=== PATIENT | female | born 1985 | race Caucasian/White ===

== ENCOUNTER → 2024-07-26 06:17 | Day surgery (SDC) | payer OTHER, SELFPAY | LOC: GI 06:17 | PROVIDERS: ATTENDING PHYSICIAN Internal Medicine | DX: K63.5 Polyp of colon (principal); K57.30 Diverticulosis of large intestine without perforation or abscess without bleeding; K22.2 Esophageal obstruction; K22.89 Other specified disease of esophagus; K21.00 Gastro-esophageal reflux disease with esophagitis, without bleeding; K44.9 Diaphragmatic hernia without obstruction or gangrene; K31.89 Other diseases of stomach and duodenum; R19.7 Diarrhea, unspecified; R13.10 Dysphagia, unspecified | CPT/HCPCS: 45380; 43239; 88305; 88312; 88342 ==

== ENCOUNTER 2024-10-15 09:18 | Inpatient (IN) | payer OTHER, SELFPAY ==
[2024-10-13 21:31] VITALS: BP 144/94
[2024-10-13] MEDS: ZOFRAN ODT (ORALLY DISINTEGRATING) 4 MG PO (21:44)
[2024-10-13 21:46] LABS: % Basophils 0.2 % (0-2); % Eosinophils 0.9 % (0-6); % Immature Granulocytes 0.4 % (0-0.5); % Monocytes 4.2 % (1.7-9.3); % Neutrophils 88.3 % (42.2-75.2); Absolute Eosinophils 0.1 10^3/uL (0-0.7); Absolute Immature Granulocytes 0.1 10^3/uL (0-0.05); Absolute Lymphocytes 0.8 10^3/uL (1.2-3.4); Absolute Monocytes 0.6 10^3/uL (0.1-0.6); Absolute Neutrophils 11.6 10^3/uL (1.4-6.5); Hematocrit 42.3 % (37.0-47.0); Hemoglobin 14.5 g/dL (12.0-16.0); Mean Corp Hgb Conc. 34.3 g/dL (33.0-37.0); Mean Corpuscular Hgb 31.1 pg (27.0-31.0); Mean Corpuscular Volume 90.8 fL (81.0-99.0); Mean Platelet Volume 9.4 fL (7.4-10.4); Nucleated Red Blood Cells % 0 %; Platelet Count 272 10^3/uL (130-400); Red Blood Cell Count 4.66 10^6/uL (4.20-5.40); Red Cell Dist. Width 12.1 % (11.5-14.5); White Blood Cell Count 13.2 10^3/uL (4.8-10.8)
[2024-10-13 21:58] LABS: HCG, Serum Qualitative Screen Negative
[2024-10-13 22:01] LABS: ALT (SGPT) 17 U/L (0-35); AST (SGOT) 22 U/L (14-36); Albumin 4.8 g/dl (3.5-5.0); Alkaline Phosphatase 66 U/L (38-126); Blood Urea Nitrogen 11 mg/dl (7-17); Calcium 9.2 mg/dl (8.4-10.2); Carbon Dioxide 24 mmol/L (22-30); Chloride 102 mmol/L (98-107); Glucose 107 mg/dl (70-99); Lipase 108 U/L (23-300); Potassium 3.8 mmol/L (3.5-5.1); Sodium 136 mmol/L (135-145); Total Bilirubin 0.9 mg/dl (0.2-1.3); Total Protein 7.7 g/dl (6.3-8.2); eGFR > 60.00
--- NOTE | 2024-10-13 22:26 | ED.GENMED ---
History of Present Illness
General
Chief Complaint: Abdominal Pain
Time Seen by Provider: 10/13/24 22:26
History of Present Illness
History of Present Illness:
TIME OF INITIAL ENCOUNTER: 10:45 PM
HPI: The patient presents due to right-sided abdominal pain that started earlier this morning. She has had a cholecystectomy in the past. The pain is somewhat similar but is lower than where she had the cholecystectomy. She has had some nausea
and vomiting without diarrhea.
EXAM:
GENERAL: Well appearingand is crying in due to pain and appears to be in mild to moderate distress related to pain in the right-side of abdomen
HEENT: Moist oral mucosa
CARDIOVASCULAR: No murmurs, normal heart rate, regular rhythm, No chest wall tenderness
PULMONARY: No respiratory distress, breath sounds are clear and equal
ABDOMEN: Soft with no peritoneal signs, mild right-sided abdominal tenderness
NEUROLOGIC: Excellent strength all extremities, no coordination deficits
PSYCHIATRIC: Appropriate mental status, normal insight and judgement, appears somewhat anxious
EXTREMITIES: Nontender, no edema, moves all extremities equally
SKIN: No rash, no lesions
NUMBER AND COMPLEXITY OF PROBLEMS ADDRESSED AT THE ENCOUNTER
� Chronic conditions affecting care: Hypothyroidism, anxiety, anemia, has had cholecystectomy
� Acute Exacerbation and/or Progression of Chronic Illness: This is an acute problem
� Differential Diagnosis includes: Pancreatitis, appendicitis, mesenteric adenitis, gastroenteritis, colitis
AMOUNT AND/OR COMPLEXITY OF DATA TO BE REVIEWED AND ANALYZED
� I performed an independent evaluation of and my interpretation is:
EKG:
CT: I personally reviewed CT of the abdomen pelvis and agree with radiologist interpretation that there is fluid distention of the small and large bowel loops with no definite wall thickening
X-rays:
Laboratory Studies: White count 13.2, hemoglobin 14.5, chemistries unremarkable including lipase, LFTs, and hCG
Other:
� Review of other/old records: I reviewed records. The patient had a colonoscopy in September 2024.
� Clinical information was obtained by an independent historian: I spoke to boyfriend at bedside
� Prescriptions/Medications Considered but not given:
� Further testing considered but not performed:
RISK OF COMPLICATIONS AND/OR MORBIDITY OR MORTALITY OF PATIENT MANAGEMENT
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
� Discussion with other providers: Dr. Pope, hospitalist for admission at about 1:07 AM
� Escalation of care including admission/observation vs risk of discharge considered: Given severity of symptoms, will obtain CT imaging. Narcotic analgesia was also given.
ANY OTHER UPDATES:
1 AM: The patient reports no improvement, the patient also just had a bout of seizure-like activity that lasted for about 10 seconds. I favor more of a psychogenic seizure as she had no tongue bite traore, no urinary incontinence, and no postictal
phase. She still has ongoing pain and appears very uncomfortable. She was given Zofran and a couple rounds of narcotic analgesia without much improvement.
Past History
Past History
ED Past Medical History: Other (gallstones)
ED Past Surgical History: Cholecystectomy, , Gynecological (Uterine ablation/reversal of tubal ligation) and Other (Abdominoplasty)
Social History
Tobacco: Non-smoker
Personal:
Living: with family
Employment: Not employed
Family History
Family History: Other (Noncontributory)
Phy Exam
Physical Exam
Physical Exam:
See HPI
Course
Orders/Labs/Results
Orders:
Orders
10/13/24 21:31
Test Result ONCE
10/13/24 21:38
Complete Blood Count/With Diff Urgent
Comprehensive Metabolic Panel Urgent
HCG, Serum Qualitative Screen Urgent
Lipase Urgent
10/13/24 21:42
Ondansetron Orally Disint [Zofran Odt (Orally Disintegrating)] 4 mg .ROUTE .[facility]
10/13/24 21:44
Ondansetron Orally Disint [Zofran Odt (Orally Disintegrating)] 4 mg PO NOW STA
10/13/24 22:47
0.9% Sodium Chloride 1000 ml [Nss] 1,000 ml IV BOLUS
Famotidine [Pepcid] 20 mg IV NOW STA
HYDROmorphone [Dilaudid] 1 mg IV NOW STA
Ondansetron Injectable [Zofran] 4 mg IV NOW STA
10/13/24 22:49
CT Abd/pelvis W Iv Cont Urgent
Comment:
Reason For Exam: R pain
10/14/24 01:04
0.9% Sodium Chloride 1000 ml [Nss] 1,000 ml IV BOLUS
HYDROmorphone [Dilaudid] 0.5 mg IV NOW STA
Ondansetron Injectable [Zofran] 4 mg IV NOW STA
10/14/24 02:03
Admit/Transfer Patient As Directed
Co-Sign Provider:
Level of Care: Observation services
Assign to:: Telemetry
Physician / Group: hospitalist
Diagnosis: abdominal pain
Reason for Telemetry: Other
Other Reason for Telemetry: possible seizure
Date to Stop Telemetry: 10/16/24
Time to Stop Telemetry: 11:00
PRN Pain Medication Management As Directed
May give lesser potent ordered pain med per pt: Yes
preference::
Protocol:: Medication orders for pain may be administered in a
manner that supports deferring to patient preference
when the pt is:
- Requesting an ordered lesser potent pain medication.
Least to most potent pain medications are defined
as: acetaminophen < NSAID < tramadol < opioids
(morphine, oxycodone, hydromorphone).
- Requesting a lesser dose of the same medication IF
ORDERED.
- Requesting a less intrusive route of administration
if both routes are prescribed by the provider (PO <
IV).
10/14/24 02:04
Code Status As Directed
Resuscitation Status: Full Code
10/14/24 02:07
CT Head W/o Iv Contrast Urgent
Comment:
Reason For Exam: headache w/ possible sz, rule out bleed/mass
10/14/24 02:28
0.9% Sodium Chloride 1000 ml [Nss] 1,000 ml IV 75 mls/hr
Acetaminophen [Tylenol] 650 mg PO Q4HPRN PRN
HYDROmorphone [Dilaudid] 1 mg IV Q4HPRN PRN
Ondansetron Injectable [Zofran] 4 mg IV Q6HPRN PRN
10/14/24 02:28
Activity As Directed
Activity Level: With Assistance
Vital Signs As Directed
Frequency: Per unit guidelines
DX Deep Vein Thrombosis Video Routine
10/14/24 03:00
Flush (0.9% Sodium Chloride) [Flush (Nss)] See Dose Instructions IV PER PROTOCOL
10/14/24 05:36
Basic Metabolic Panel IN AM
Complete Blood Count/No Diff IN AM
10/14/24 05:49
HYDROmorphone [Dilaudid] 0.5 mg IV Q4HPRN PRN
10/14/24 Breakfast
NPO
Allow oral meds: Yes
Allow clear liquids: Sips of Clears
NPO with Ice Chips: Yes
10/14/24 08:00
0.9% Sodium Chloride [Nss (Preservative Free)] 10 ml IV DAILY
Alprazolam [Xanax] 1 mg PO DAILY@0800,1400
Multivitamin [Theragran] 1 tablet PO DAILY
Pantoprazole [Protonix IV] 40 mg IV DAILY
10/14/24 Lunch
Clear Liquid
At Your Request: Full Participation
Does patient need a safe tray?: No
10/14/24 12:09
GASTROINTESTINAL CONSULT Routine
Consulting Provider: Clarisse Olivera
Was physician already notified: Yes
10/14/24 14:37
Fentanyl, Urine Stat
Urine Drug Abuse Screen Stat
Date Specimen was Collected: 10/14/24
Time Specimen was Collected: 14:21
STOOL [C difficile Antigen & Toxins] Routine
ALAN Source: Feces/Stool
Specimen Description:
Date Specimen was Collected: 10/14/24
Time Specimen was Collected: 14:21
Stool Culture Routine
ALAN Source: Feces/Stool
Specimen Description:
Date Specimen was Collected: 10/14/24
Time Specimen was Collected: 14:21
10/14/24 16:54
Morphine Sulfate 2 mg IV NOW STA
10/14/24 18:00
Enoxaparin Sodium [Lovenox] 40 mg SC QPM
10/14/24 22:00
Alprazolam [Xanax] 2 mg PO HS
HydrOXYZINE [Atarax] 25 mg PO HS
10/15/24 01:21
Sucralfate Suspension [Carafate Suspension] 1 gm PO NOW STA
10/15/24 04:17
CBC/With Diff [Complete Blood Count/With Diff] IN AM
10/15/24 05:26
Comprehensive Metabolic Panel Routine
Comment: REDRAW
10/15/24 Breakfast
Full Liquids
At Your Request: Full Participation
10/15/24 08:46
Level of Care Change As Directed
Level of Care: Inpatient admission
Reason for Hospitalization: Persistent abdominal pain and distention
diarrhea
Expected length of stay greater than two midnights?: Yes
ELOS- Estimated Length of Stay in days: 4
I certify the patient meets the requirements for IP care: Yes
10/15/24 09:33
Norovirus by PCR Routine
ALAN Source: Feces/Stool
Specimen Description:
Date Specimen was Collected: 10/15/24
Time Specimen was Collected: 09:31
Stool For WBC Routine
ALNA Source: Feces/Stool
Specimen Description:
Date Specimen was Collected: 10/15/24
Time Specimen was Collected: 09:31
10/16/24 06:00
Obstruct Series W/PA Chest [CR Obstruct Series W/pa Chest] IN AM
Comment:
Reason For Exam: abdominal distention
10/16/24 07:37
BMP [Basic Metabolic Panel] IN AM
CBC/With Diff [Complete Blood Count/With Diff] IN AM
Lactic Acid IN AM
10/16/24 11:00
DC Protocol for Telemetry ONCE
Abnormal Lab Results
10/13/24 10/14/24 10/14/24
21:38 05:36 14:37
WBC 13.2 H 10^3/uL
(4.8-10.8)
RBC 3.77 L 10^6/uL
(4.20-5.40)
Hgb 11.8 L g/dL
(12.0-16.0)
Hct 34.9 L %
(37.0-47.0)
MCH 31.1 H pg 31.3 H pg
(27.0-31.0) (27.0-31.0)
Abs Immat Gran (auto) 0.1 H 10^3/uL
(0-0.05)
Absolute Neuts (auto) 11.6 H 10^3/uL
(1.4-6.5)
Absolute Lymphs (auto) 0.8 L 10^3/uL
(1.2-3.4)
Neutrophils % 88.3 H %
(42.2-75.2)
Lymphocytes % 6.0 L %
(20.5-51.1)
Monocytes %
Chloride 108 H mmol/L
(98-107)
Carbon Dioxide 21 L mmol/L
(22-30)
BUN
Glucose 107 H mg/dl 104 H mg/dl
(70-99) (70-99)
Calcium 7.2 L D mg/dl
(8.4-10.2)
Total Protein
Albumin
Urine Opiates Screen Positive H
(Negative)
U Benzodiazepines Scrn Positive H
(Negative)
10/15/24 10/15/24
04:17 05:26
WBC 3.6 L 10^3/uL
(4.8-10.8)
RBC 3.62 L 10^6/uL
(4.20-5.40)
Hgb 11.5 L g/dL
(12.0-16.0)
Hct 33.2 L %
(37.0-47.0)
MCH 31.8 H pg
(27.0-31.0)
Abs Immat Gran (auto)
Absolute Neuts (auto)
Absolute Lymphs (auto) 0.8 L 10^3/uL
(1.2-3.4)
Neutrophils %
Lymphocytes %
Monocytes % 12.1 H %
(1.7-9.3)
Chloride 108 H mmol/L
(98-107)
Carbon Dioxide
BUN 3 L mg/dl
(7-17)
Glucose
Calcium 7.5 L mg/dl
(8.4-10.2)
Total Protein 5.3 L D g/dl
(6.3-8.2)
Albumin 3.0 L D g/dl
(3.5-5.0)
Urine Opiates Screen
U Benzodiazepines Scrn
10/15/24 04:17
10/15/24 05:26
Vital Signs
Initial and Last Documented VS:
Initial Vital Signs
Temp Pulse Resp BP Pulse Ox
36.6 C 128 18 144/94 100
10/13/24 21:31 10/13/24 21:31 10/13/24 21:31 10/13/24 21:31 10/13/24 21:31
Last Documented Vital Signs
Temp Pulse Resp BP Pulse Ox
36.7 C 74 16 111/73 100
10/16/24 11:57 10/16/24 11:57 10/16/24 11:57 10/16/24 11:57 10/16/24 11:57
*Critical Care Note
Total Time (30-74mins, 75-104mins- exclusive of procedures): Not Applicable
ED Attending Note
-
Portions of this chart may have been created with voice recognition software.� Occasional wrong word or��sound alike� substitutions may have occurred due to the inherent limitations of voice recognition software.
Discharge Plan
Departure
Patient Disposition: Admit
Date of Disposition: 10/14/24
Time of Disposition: :
Presentation/result/management discussed w/ accepting MD/DO: Hospitalist
Discharge Problem:
Intractable abdominal pain
Interventions
Interventions:
*Risk Screen - Suicide Last Done: 10/13/24 21:33
*General Assessment Last Done: 10/13/24 21:33
*Neglect/Abuse Screening Last Done: 10/13/24 21:33
ED- Fall Risk Assessment Last Done: 10/15/24 20:26
*ED COVID-19 Vaccine History Last Done: 10/13/24 22:39
*Nursing Disposition Last Done: 10/15/24 20:26
WD-[facility]sd[facility] Assessment Last Done: 10/14/24 11:02
Discharge Date and Time
Discharge Date/Time: 10/15/24 20:27
[2024-10-13 22:39] VITALS: BMI 23.3
--- NOTE | 2024-10-13 22:41 | EDRN ---
Pt started tin RUQ abdominal pain intermittently all day. Pt has not eaten due to the pain. Pt tried to drink tea and pain became stabbing and pt vomited around 2100. Pt feels weak and dizzy. No cp, sob, fever/chills/cough, urinary symptoms. Pt
had similar pain when her gallbladder was removed.
[2024-10-13 22:46] VITALS: BP 126/99
[2024-10-13] MEDS: NSS 1000 IV (22:54)
[2024-10-13] MEDS: ZOFRAN 4 MG IV (22:57)
[2024-10-13] MEDS: PEPCID 20 MG IV (22:59)
[2024-10-13 23:00] VITALS: BP 117/96
[2024-10-13] MEDS: DILAUDID 1 MG IV (23:02)
[2024-10-14] VITALS (9 sets, daily range): BP systolic 90–112; BP diastolic 66–87; BMI 25.3
[2024-10-14] MEDS: NSS 1000 IV ×4 (01:26→21:03)
[2024-10-14] MEDS: ZOFRAN 4 MG IV ×3 (01:26→14:32)
[2024-10-14] MEDS: DILAUDID 0.5 MG IV ×4 (01:30→16:20)
--- NOTE | 2024-10-14 01:51 | HPS.HSE ---
Family Physician
-
Family Physician: Omaira Greenwood
Chief Complaint
-
Intractable abdominal pain and nausea vomiting
History of Present Illness
This is a 39-year-old female with past medical history of cholecystitis status post cholecystectomy, history of hernia repair and ectopic status post surgery who presents to the emergency department with an acute episode of right upper
quadrant abdominal pain with nausea and vomiting that started this a.m.
Patient and family report that she had a headache yesterday but otherwise was in usual state of health. Denies any known sick contacts. 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 She denies having any fevers or chills.
She has not had any diarrhea. She has diverticulosis and reported that she had a soft bowel movement this morning. Soon afterwards she felt nauseous and had large voluminous and bilious emesis. She reported that she had up to 6 emesis at home.
Since then she has been having continuous dry heaving. Pain is reported as sharp located to the right upper quadrant and nonradiating. She has no urinary symptoms. She denies any shortness of breath.
She stated that she recently had upper endoscopy via GI and she was told that she had sliding hiatal hernia at that time.
While in the emergency department room she was requesting additional pain medications and spouse reportedly had convulsive episode that lasted for about 5 seconds. Denies any prior history of seizures. Denies any regular alcohol use.
She was hemodynamically stable and afebrile with normal oxygen saturation on room air.
CBC was unremarkable except for a white count of 13. Electrolytes were also within normal limits. Lipase LFTs were normal. test was negative.
The CT of the abdomen pelvis was unremarkable except for fluid distention of the small and large bowel.
Medical History
Past Medical History
Past Medical History: Reports GERD and Psychiatric (Anxiety)
Past Surgical History: Reports Cholecystectomy
Additional Past Surgical History:
Ectopic status post surgery
Umbilical hernia repair
Social History
Tobacco: Non-smoker
Alcohol: Occasional
Drug: None
Personal:
Living: With Family
Employment: Employed
Family History
Family History: Not pertinent
Allergies / Home Medications
Allergies reflects when Allergies were last updated in [employer].
Home Medications with original date entered in [employer]
Allergy/Medication List:
Allergies
Allergy/AdvReac Type Severity Reaction Status Date / Time
ibuprofen [From Motrin] Allergy Facial Verified 10/13/24 22:41
swelling
meperidine Allergy 'LOOPY,NOT Verified 10/13/24 22:41
FEEL GOOD'
meperidine HCl [From Demerol] Allergy Unknown Verified 10/13/24 22:41
naproxen Allergy Swelling Verified 10/13/24 22:41
Sulfa (Sulfonamide Allergy Hives Verified 10/13/24 22:41
Antibiotics)
Home Medications
alprazolam 1 mg tablet 1 mg PO DAILY@0800,1400 10/13/24
alprazolam 1 mg tablet 2 mg PO HS 10/13/24
hydroxyzine HCl 25 mg tablet 25 mg PO HS 10/13/24
multivitamin 1 tab PO DAILY 10/13/24
pantoprazole 20 mg tablet,delayed release (Protonix) 20 mg PO DAILY 10/13/24
Review of Systems
-
History Source: Patient
Constitutional: Reports No Symptoms
EENT: Reports No Symptoms
Respiratory: Reports No Symptoms
Cardiac: Reports No Symptoms
Abdomen/GI: Reports Abdominal Pain, Nausea and Vomiting
: Reports No Symptoms
Musculoskeletal: Reports No Symptoms
Skin: Reports No Symptoms
Neurological: Reports No Symptoms
Endocrine: Reports No Symptoms
Hematologic/Lymphatic: Reports No Symptoms
Psych: Reports No Symptoms
Physical Exam
Vital Signs
Vital Signs
Temp Pulse Resp BP Pulse Ox
98 F 112 16 111/87 100
10/13/24 21:31 10/14/24 01:24 10/14/24 00:33 10/14/24 01:24 10/14/24 01:24
Physical Exam
General: Well Developed, Well Nourished and Pain
HEENT: NormoCephalic, Anicteric and Moist mucous membranes
Respiratory: Clear
Cardiac: S1/S2 and Regular Rhythm
Breast: Deferred by me
GI: Soft, Non Distended, Normal Bowel Sounds and Tender
Rectal: Deferred by Provider
Genito-urinary: Deferred by me
Musculoskeletal: No Clubbing, No Cyanosis and No Edema
Skin: Warm
Neuro: AO x 3
Hematologic/Lymphatic: No Lymphadenopathy
Psych: Anxious
Laboratory Results
-
10/13/24 21:38
10/13/24 21:38
Laboratory Results
Total Bilirubin 0.9 mg/dl (0.2-1.3) 10/13/24 21:38
AST 22 U/L (14-36) 10/13/24 21:38
ALT 17 U/L (0-35) 10/13/24 21:38
Alkaline Phosphatase 66 U/L (38-126) 10/13/24 21:38
Lipase 108 U/L (23-300) 10/13/24 21:38
Data Reviewed
-
CT Scan: Report Reviewed by me
Lab Data: Labs Reviewed by me
Old Records: Reviewed
Impression/Plan
-
IMPRESSION:
Patient with history of cholecystitis status post cholecystectomy, ectopic status post surgery, status post umbilical hernia repair who presents to the emergency department with acute episode of right upper quadrant discomfort/pain
associated with bilious emesis. She had leukocytosis. No urinary symptoms. Labs are otherwise unremarkable with negative LFTs and lipase. CT scan is unremarkable with unchanged biliary ductal size of 8 mm, no evidence of acute pancreatitis
appendicitis or obstruction. There is fluid distention of the small and large bowel which may be consistent with an ileus. Possibly briefly she had a gallstone ileus or at this time enteritis without apparent diarrhea. Course complicated by
episode of convulsions in the setting of seeking additional pain medications. This lasted about 5 to 10 seconds. She had an headache episode yesterday but has not had a headache since.
PLAN:
1. Abdominal pain - suspect ileus which could be from gall stones versus infectious gastroenteritis
- admit to telemetry/obs
- npo for now except sips and ice chips as well meds
- ppi daily
- antiemetics and pain control
- serial exam for abdominal distension and concern for obstruction
- IV fluids
2. Convulsions - No prior h/o. lasted 5 seconds. No post-ictal depression. No tongue biting and no incontinence.
- monitor on telemetry
- CT head
- check lactic acid level
- no indication for additional as likelihood of pseudo seizure is much higher
3. Anxiety
- prn benzos for now.
DVT PPX - lovenox sq
Code statu full code
--- NOTE | 2024-10-14 05:46 | EDRN ---
Pt aware tylenol and 1mg IV dilaudid ordered for pain. Pt requesting 0.5mg dilaudid for pain because 1mg 'makes me too loopy.' TT sent to house provider for order change.
[2024-10-14 06:09] LABS: Hematocrit 34.9 % (37.0-47.0); Hemoglobin 11.8 g/dL (12.0-16.0); Mean Corp Hgb Conc. 33.8 g/dL (33.0-37.0); Mean Corpuscular Hgb 31.3 pg (27.0-31.0); Mean Corpuscular Volume 92.6 fL (81.0-99.0); Mean Platelet Volume 9.7 fL (7.4-10.4); Platelet Count 204 10^3/uL (130-400); Red Blood Cell Count 3.77 10^6/uL (4.20-5.40); White Blood Cell Count 9.5 10^3/uL (4.8-10.8)
[2024-10-14 06:15] LABS: Blood Urea Nitrogen 10 mg/dl (7-17); Calcium 7.2 mg/dl (8.4-10.2); Carbon Dioxide 21 mmol/L (22-30); Chloride 108 mmol/L (98-107); Estimated Creatinine Clearance 99 ml/min; Glucose 104 mg/dl (70-99); Potassium 4.4 mmol/L (3.5-5.1); Sodium 135 mmol/L (135-145); eGFR > 60.00
[2024-10-14] MEDS: NSS (PRESERVATIVE FREE) 10 ML IV (07:40)
[2024-10-14] MEDS: PROTONIX IV 40 MG IV (07:40)
[2024-10-14] MEDS: XANAX 1 MG PO ×2 (07:41→13:55)
[2024-10-14] MEDS: TYLENOL 650 MG PO ×2 (07:41→16:25)
[2024-10-14] MEDS: THERAGRAN PO (07:41)
--- NOTE | 2024-10-14 12:13 | W.PN.UPDATE ---
Addendum entered and electronically signed by Edward Deluna MD 10/14/24 12:19:
If w/ increasing amount of diarrhea with p.o. intake and consider cholestyramine
Original Note:
Update Note
Progress Note Update
Seen and examined independent of pulmonary physician
States continues to remain with severe right-sided abdominal pain. States he noted some bloating with stool earlier today. States remains with nausea with significant dry heaves. Pain has been persistent since yesterday evening. Denies any sick
contact. States of eating sushi yesterday. Has problems with abdominal pain and intermittent GI discomfort. Follows up with Dr. Mejia as outpatient.
General: Well Developed, Well Nourished and in distress due to pain,
HEENT: NormoCephalic, Anicteric and Moist mucous membranes
Respiratory: Clear
Cardiac: S1/S2 and Regular Rhythm
Breast: Deferred by me
GI: Soft, Non Distended, Normal Bowel Sounds and Tender
Rectal: Deferred by Provider
Genito-urinary: Deferred by me
Musculoskeletal: No Clubbing, No Cyanosis and No Edema
Skin: Warm
Neuro: AO x 3
Hematologic/Lymphatic: No Lymphadenopathy
Psych: Anxious, crying
IMPRESSION:
Patient with history of cholecystitis status post cholecystectomy, ectopic status post surgery, status post umbilical hernia repair who presents to the emergency department with acute episode of right upper quadrant discomfort/pain
associated with bilious emesis. She had leukocytosis. No urinary symptoms. Labs are otherwise unremarkable with negative LFTs and lipase. CT scan is unremarkable with unchanged biliary ductal size of 8 mm, no evidence of acute pancreatitis
appendicitis or obstruction. There is fluid distention of the small and large bowel which may be consistent with an ileus. Possibly briefly she had a gallstone ileus or at this time enteritis without apparent diarrhea. Course complicated by
episode of convulsions in the setting of seeking additional pain medications. This lasted about 5 to 10 seconds. She had an headache episode yesterday but has not had a headache since.
PLAN:
Nausea,vomiting , diarrhea likely 2/2 infectious gastroenteritis versus IBS-D versus bile salt diarrhea
Abdomen pain likely 2/2 above vs. IBS ?
-Can advance to clears if able to tolerated.
- ppi daily
- antiemetics and pain control
- serial exam for abdominal distension and concern for obstruction
- IV fluids
- check stools studies
- Will ask GI for input
Convulsions - No prior h/o. lasted 5 seconds. No post-ictal depression. No tongue biting and no incontinence.
- monitor on telemetry
- CT head
- check lactic acid level
- no indication for additional as likelihood of pseudo seizure is much higher
Anxiety
- prn benzos for now.
DVT PPX - lovenox sq
Code statu full code
[2024-10-14 15:14] LABS: Amphetamines Negative (Negative); Barbiturates Negative (Negative); Benzodiazepines Positive (Negative); Buprenorphine Negative (Negative); Cocaine Negative (Negative); Marijuana Negative (Negative); Methadone Negative (Negative); Methamphetamines Negative (Negative); Opiates Positive (Negative); Phencyclidine Negative (Negative); Tricyclic Antidepressants Negative (Negative)
[2024-10-14 15:31] LABS: Fentanyl, Urine Negative (Negative)
[2024-10-14] MEDS: MORPHINE SULFATE 2 MG IV (17:08)
[2024-10-14] MEDS: XANAX 2 MG PO (22:06)
[2024-10-14] MEDS: ATARAX 25 MG PO (22:06)
[2024-10-15] VITALS (9 sets, daily range): BP systolic 90–115; BP diastolic 62–86; BMI 25.0
[2024-10-15] MEDS: CARAFATE SUSPENSION 1 GM PO (01:31)
[2024-10-15] MEDS: ZOFRAN 4 MG IV ×3 (04:25→16:33)
[2024-10-15] MEDS: DILAUDID 0.5 MG IV ×3 (04:28→18:01)
[2024-10-15 04:45] LABS: % Basophils 0.3 % (0-2); % Eosinophils 3.7 % (0-6); % Immature Granulocytes 0.3 % (0-0.5); % Monocytes 12.1 % (1.7-9.3); % Neutrophils 61.6 % (42.2-75.2); Absolute Eosinophils 0.1 10^3/uL (0-0.7); Absolute Lymphocytes 0.8 10^3/uL (1.2-3.4); Absolute Monocytes 0.4 10^3/uL (0.1-0.6); Absolute Neutrophils 2.2 10^3/uL (1.4-6.5); Hematocrit 33.2 % (37.0-47.0); Hemoglobin 11.5 g/dL (12.0-16.0); Mean Corp Hgb Conc. 34.6 g/dL (33.0-37.0); Mean Corpuscular Hgb 31.8 pg (27.0-31.0); Mean Corpuscular Volume 91.7 fL (81.0-99.0); Nucleated Red Blood Cells % 0 %; Platelet Count 182 10^3/uL (130-400); Red Blood Cell Count 3.62 10^6/uL (4.20-5.40); Red Cell Dist. Width 12.2 % (11.5-14.5); White Blood Cell Count 3.6 10^3/uL (4.8-10.8)
[2024-10-15 06:05] LABS: ALT (SGPT) 15 U/L (0-35); AST (SGOT) 22 U/L (14-36); Alkaline Phosphatase 43 U/L (38-126); Blood Urea Nitrogen 3 mg/dl (7-17); Calcium 7.5 mg/dl (8.4-10.2); Carbon Dioxide 24 mmol/L (22-30); Chloride 108 mmol/L (98-107); Estimated Creatinine Clearance 99 ml/min; Glucose 96 mg/dl (70-99); Potassium 3.6 mmol/L (3.5-5.1); Sodium 137 mmol/L (135-145); Total Bilirubin 0.3 mg/dl (0.2-1.3); Total Protein 5.3 g/dl (6.3-8.2); eGFR > 60.00
--- NOTE | 2024-10-15 08:34 | W.PN.HOSP.TC ---
Today's Communication/Plan
-
cautiously advance diet to Full Liquids
Check stool for WBC
Call placed to microbiology and Norovirus testing kits have become available, will order
Assessment / Plan
Assessment / Plan
Patient with history of cholecystitis status post cholecystectomy, ectopic status post surgery, status post umbilical hernia repair who presents to the emergency department with acute episode of right upper quadrant discomfort/pain
associated with bilious emesis. She had leukocytosis. No urinary symptoms. Labs are otherwise unremarkable with negative LFTs and lipase. CT scan is unremarkable with unchanged biliary ductal size of 8 mm, no evidence of acute pancreatitis
appendicitis or obstruction. There is fluid distention of the small and large bowel which may be consistent with an ileus. Possibly briefly she had a gallstone ileus or at this time enteritis without apparent diarrhea. Course complicated by
episode of convulsions in the setting of seeking additional pain medications. This lasted about 5 to 10 seconds. She had an headache episode yesterday but has not had a headache since.
PLAN:
Nausea,vomiting , diarrhea likely 2/2 infectious gastroenteritis (?Norovirus, ?related to having Sushi, +C.Diff Antigen, neg toxin) versus IBS-D versus bile salt diarrhea
with neg C.diff Toxin, will not start Vanco, but await input from GI on this aspect
Abdomen pain likely 2/2 above vs. IBS ?
-Tolerating clears, pt would like to try Full Liquids, will order, but pt told to be very cautious with intake
- ppi daily
- antiemetics and pain control
- serial exam for abdominal distension and concern for obstruction
- continue IV fluids
- check stools studies, will add stool for WBC
- Will ask GI for input
Convulsions - No prior h/o. lasted 5 seconds. No post-ictal depression. No tongue biting and no incontinence.
- monitor on telemetry
- CT head - Neg
- check lactic acid level
- no indication for additional as likelihood of pseudo seizure is much higher
Anxiety
- prn benzos for now.
DVT PPX - lovenox sq
Code statu full code
with continued abdominal pain and distention will change status to full admission
Anticipated Discharge: 24 - 48 hours
Subjective/Interval History
-
Date of Service: October 15, 2024
Still with nausea, passing some stool, vomiting has stopped, still with abd pain and distention
Objective Data
-
Labs:
Laboratory Results
10/15/24 10/15/24
04:17 05:26
WBC 3.6 L
Hgb 11.5 L
Hct 33.2 L
Plt Count 182
Sodium Cancelled 137
Potassium Cancelled 3.6
Chloride Cancelled 108 H
Carbon Dioxide Cancelled 24
BUN Cancelled 3 L
Creatinine Cancelled 0.6
Glucose Cancelled 96
Calcium Cancelled 7.5 L
Total Bilirubin Cancelled 0.3
AST Cancelled 22
ALT Cancelled 15
Alkaline Phosphatase Cancelled 43
Vital Signs:
Vital Signs
Temp Pulse Resp BP Pulse Ox
98.5 F 61 18 98/62 98
10/14/24 21:00 10/15/24 06:45 10/15/24 04:08 10/15/24 04:08 10/15/24 04:08
Review of Systems
-
History Source: Patient and Coordinated Provider (reviewed with NATHEN Sandoval)
Constitutional: Denies Fever
EENT: Reports No Symptoms Reported
Respiratory: Reports No Symptoms
Cardiac: Reports No Symptoms
Abdomen/GI: Reports Abdominal Pain, Nausea, Diarrhea and Bloated; Denies Vomiting
Genitourinary: Reports No Symptoms
Neuro: Reports No Symptoms
Physical Exam
-
General: Well Developed, Well Nourished and No Apparent Distress
HEENT: Normocephalic, Atraumatic and Moist Mucous Membranes
Respiratory: Clear to Auscultation; Negative Wheezes, Rales or Rhonchi
Cardiac: Regular Rhythm and S1/S2
GI: Soft, Normal Bowel Sounds, Tender (most pronounced in area of hepatic flexure) and Distended
Musculoskeletal: No Clubbing, No Cyanosis and No Edema
Skin: Warm and Dry
Neuro: Awake, Alert and Oriented
[2024-10-15] MEDS: NSS 1000 IV (08:38)
[2024-10-15] MEDS: THERAGRAN 1 TABLET PO (08:41)
[2024-10-15] MEDS: XANAX 1 MG PO ×2 (08:41→13:37)
[2024-10-15] MEDS: NSS (PRESERVATIVE FREE) 10 ML IV (08:42)
[2024-10-15] MEDS: PROTONIX IV 40 MG IV (08:42)
--- NOTE | 2024-10-15 09:51 | CON.GI ---
Addendum entered and electronically signed by Clarisse Galicia Do, MD 10/15/24 13:29:
I saw and examined the patient.
The ROBOT DESIGNER's note was reviewed and I agree with the note.
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 She is undercare of Dr Mejia. Workup included EGD/colon in July 2024. MRE was recommend OP basis. Vitals
stable afebrile. abdomen soft R sided abd tenderness to palpation. Labs reviewed. Stool studies +norovirus
Impression
- Norovirus gastroenteritis
- GERD
- Anxiety
- IBS
Recommendations
- Supportive management with IVF antiemetics and pain meds
- Simethicone for gas
- Heating pack
- Low residue diet as tolerates
- C/w PPI
No further inpatient GI workup. Will sign off please call for ?
She can FU with Dr Mejia
Original Note:
Consultation
-
Date/Time Consultation Requested: 10/14/23 1200
Date/Time Consultation Performed: 10/15/23 0945
Requesting Provider: Edward Deluna MD
Performing Provider: AMY Bonilla, Clarisse Olivera MD
Reason for Consultation: abdominal pain
Medical History
Chief Complaint / HPI
Chief Complaint: abdominal pain
History of Present Illness:
Pt is a 39yo with hx GERD, anxiety, prior cholecystitis with clovis, ectopic with prior b/l salpingectomy, leep procedure, endometrial ablation, gastritis with prior H pylori,GERD, abdominoplasty, breast reduction, hernia repair,
dysphagia, prior elevation of fecal aby to 100. She completed EGD/colon in July with plan for MRE which pt did not recall but now noted with abdominal pain with nausea, vomiting, bloating and diarrhea. . She was noted with convulsion while in
ER after admission. CT on admission with fluid in colon suggest diarrhea without inflammatory changes.
In review with patient she has had some chronic GI issues with concern for underlying IBS-D. She completed recent EGD/colon and was to completed MRE but pt did not recall that in plan and was due to reschedule follow up. She has been feeling
ok and began on Tuesday with sudden onset right sided pain with bloating, nausea, vomiting, then eventual diarrhea. She continued with some symptoms on evaluation today but starting to take some clear diet. She denies dysphagia, GERD,
hematemesis, or rectal bleeding. 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
EGD 07/2024- walp grade B esophasgtitis, esophageal sloughing, small HH, non obstructing schatzki ring neg bx
Colonoscopy 07/2024- olyp, diverticulosis neg microscopic colitis.
Past Medical History
Past Medical History: GERD, Psychiatric (anxiety) and Other (prior cholecystitis, lyme disease, bells palsy, covid, gastritis, H pylori, IBS)
Past Surgical History: Cholecystectomy, , Gynecological (ectopic with prior surgery- salpingectomy, leep procedure, endometrial ablation ) and Other (hernia repair, breast reduction, abdominoplasty)
Social History
Tobacco: Non-Smoker
Alcohol: Occasional
Drug: None
Personal: Other (boyfriend)
Living: Alone
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
Family History
Family History: Other (no family hx GI issues, colon CA etc)
Allergies / Home Medications
Allergy/AdvReac Type Severity Reaction Status Date / Time
ibuprofen [From Motrin] Allergy Facial Verified 10/13/24 22:41
swelling
meperidine Allergy 'LOOPY,NOT Verified 10/13/24 22:41
FEEL GOOD'
meperidine HCl [From Demerol] Allergy Unknown Verified 10/13/24 22:41
naproxen Allergy Swelling Verified 10/13/24 22:41
Sulfa (Sulfonamide Allergy Hives Verified 10/13/24 22:41
Antibiotics)
�Medication �Instructions �Recorded
alprazolam 1 mg tablet 1 mg PO DAILY@0800,1400 Mental 10/13/24
Health/Anxiety
alprazolam 1 mg tablet 2 mg PO HS Mental Health/Anxiety 10/13/24
hydroxyzine HCl 25 mg tablet 25 mg PO HS Mental Health/Anxiety 10/13/24
multivitamin 1 tab PO DAILY Supplement 10/13/24
pantoprazole 20 mg tablet,delayed 20 mg PO DAILY Gastrointestinal 10/13/24
release (Protonix) Issue
acetaminophen 500 mg tablet 1,000 mg PO Q6HPRN PRN headaches 10/14/24
(Tylenol Extra Strength)
Review of Systems
-
History Source: Patient
Constitutional: Reports Weight Gain
EENT: Reports No Symptoms
Respiratory: Reports No Symptoms
Cardiac: Reports No Symptoms
Abdomen/GI: Reports Abdominal Pain, Nausea, Vomiting and Diarrhea
: Reports No Symptoms
Musculoskeletal: Reports No Symptoms
Neurological: Reports Headache
Endocrine: Reports No Symptoms
Hematologic/Lymphatic: Reports No Symptoms
Vital Signs
Temp Pulse Resp BP Pulse Ox
98.5 F 73 14 109/67 99
10/15/24 08:00 10/15/24 08:00 10/15/24 08:00 10/15/24 08:00 10/15/24 08:00
Physical Exam
Exam
General: Well Developed, Well Nourished and No Apparent Distress
HEENT: Normocephalic and Anicteric
Respiratory: Clear
Cardiac: Regular Rhythm
GI: Soft, Tender (diffuse ) and Distended
Musculoskeletal: No Clubbing and No Cyanosis
Skin: Warm and Dry
Neuro: Awake, Alert and AO x 3
Psych: Calm
Results
WBC 3.6 10^3/uL (4.8-10.8) L 10/15/24 04:17
Hgb 11.5 g/dL (12.0-16.0) L 10/15/24 04:17
Hct 33.2 % (37.0-47.0) L 10/15/24 04:17
MCV 91.7 fL (81.0-99.0) 10/15/24 04:17
Plt Count 182 10^3/uL (130-400) 10/15/24 04:17
Absolute Neuts (auto) 2.2 10^3/uL (1.4-6.5) 10/15/24 04:17
Sodium 137 mmol/L (135-145) 10/15/24 05:26
Potassium 3.6 mmol/L (3.5-5.1) 10/15/24 05:26
Chloride 108 mmol/L (98-107) H 10/15/24 05:26
Carbon Dioxide 24 mmol/L (22-30) 10/15/24 05:26
BUN 3 mg/dl (7-17) L 10/15/24 05:26
Creatinine 0.6 mg/dL (0.6-1.0) 10/15/24 05:26
Calcium 7.5 mg/dl (8.4-10.2) L 10/15/24 05:26
Total Bilirubin 0.3 mg/dl (0.2-1.3) 10/15/24 05:26
AST 22 U/L (14-36) 10/15/24 05:26
ALT 15 U/L (0-35) 10/15/24 05:26
Alkaline Phosphatase 43 U/L (38-126) 10/15/24 05:26
Lipase 108 U/L (23-300) 10/13/24 21:38
Diagnostic Image Results:
10/13 CT Abd/pelvis W Iv Cont
1. Fluid within the colon, suggestive of diarrhea. No significant bowel wall thickening or inflammatory change.
2. Status post cholecystectomy. No biliary ductal dilation.
Prior GI Procedures:
EGD: walp 07/26/24-
- LA Grade B reflux esophagitis with no bleeding.
Biopsied.
- Mucosal changes in the esophagus with sloughing.
Biopsied.
- Small hiatal hernia.
- Non-obstructing Schatzki ring. Biopsied.
- Normal stomach. Biopsied.
- Normal examined duodenum. Biopsied.
bx neg Hy pylori, no metaplasia, neg fungal
Colonoscopy:
07/26/24 walp - One 4 mm polyp in the sigmoid colon, removed with a
jumbo cold forceps. Resected and retrieved.
- Diverticulosis in the left colon.
- The examined portion of the ileum was normal.
- Biopsies were taken with a cold forceps from the
entire colon for evaluation of microscopic colitis.
bx neg no microscopic colitis, HP polyp
Assessment / Plan
-
Pt is a 39yo with hx GERD, anxiety, prior cholecystitis with clovis, ectopic with prior b/l salpingectomy, leep procedure, endometrial ablation, gastritis with prior H pylori,GERD, abdominoplasty, breast reduction, hernia repair,
dysphagia, prior elevation of fecal aby to 100. She completed recent GI testing with concern for possible IBS-D with EGD/colon in July with plan for MRE which pt did not recall. She is now noted with abdominal pain with nausea, vomiting,
bloating and diarrhea. She was noted with convulsion while in ER after admission. CT on admission with fluid in colon suggest diarrhea without inflammatory changes.
-sudden onset abdominal pain, with nausea, vomiting and diarrhea
-hx chronic GI issues with concern for IBS-D
-cdif ag + tox neg
-hx multiple abd/S[employer]OL [employer]ER surgeries
-hx mild elevated CRP 100
-mild anemia
-convulsion after admission
-recent wt gain
other med problems:
-anxiety
-GERD
-prior cholecystitis with clovis
-ectopic with prior b/l salpingectomy
- leep procedure
-endometrial ablation
-gastritis with prior H pylori recent bx neg
- abdominoplasty
- breast reduction
PLAN:
etiology of symptoms with acute onset related to acute infectious etiology with sudden onset such as norovirus, c-diff cx ag + tox neg, vs chronic related to IBS vs other
agree with norovirus testing with recent outbreak
c-diff ag + tox neg-- abx held for now but can consider if not improving and continued diarrhea
await other stool cx
OP MRE -- reviewed with patient with current illness may need to wait til improved vs consider IP if not improving and other work up neg
cont supportive care- diet as tolerated, IVF
-
-
Thank you for consultation and allowing me to participate in the patient's care. Please call the correctional probation officer GI physician during the after hours with any questions or concerns.
[2024-10-15] MEDS: TYLENOL 650 MG PO ×2 (10:32→16:14)
[2024-10-15] MEDS: MYLICON 80 MG PO ×2 (17:55→21:37)
--- NOTE | 2024-10-15 20:21 | PTCARENOTE ---
report sent to floor
[2024-10-15] MEDS: XANAX 2 MG PO (21:37)
[2024-10-15] MEDS: ATARAX 25 MG PO (21:37)
[2024-10-16 03:55] VITALS: BP 101/61
[2024-10-16] MEDS: ZOFRAN 4 MG IV ×2 (04:17→11:13)
[2024-10-16] MEDS: NSS 1000 IV (04:19)
[2024-10-16] MEDS: DILAUDID 0.5 MG IV (04:20)
[2024-10-16 08:19] LABS: % Basophils 0.2 % (0-2); % Eosinophils 2.9 % (0-6); % Immature Granulocytes 0.6 % (0-0.5); % Lymphocytes 18.1 % (20.5-51.1); % Monocytes 8.7 % (1.7-9.3); % Neutrophils 69.5 % (42.2-75.2); Absolute Eosinophils 0.2 10^3/uL (0-0.7); Absolute Lymphocytes 0.9 10^3/uL (1.2-3.4); Absolute Monocytes 0.5 10^3/uL (0.1-0.6); Absolute Neutrophils 3.6 10^3/uL (1.4-6.5); Hematocrit 34.7 % (37.0-47.0); Hemoglobin 11.3 g/dL (12.0-16.0); Mean Corp Hgb Conc. 32.6 g/dL (33.0-37.0); Mean Corpuscular Hgb 30.8 pg (27.0-31.0); Mean Corpuscular Volume 94.6 fL (81.0-99.0); Nucleated Red Blood Cells % 0 %; Platelet Count 199 10^3/uL (130-400); Red Blood Cell Count 3.67 10^6/uL (4.20-5.40); Red Cell Dist. Width 12.1 % (11.5-14.5); White Blood Cell Count 5.2 10^3/uL (4.8-10.8)
[2024-10-16 08:26] LABS: Lactic Acid < 0.5 mmol/L (0.7-2.0)
[2024-10-16] MEDS: NSS (PRESERVATIVE FREE) 10 ML IV (08:30)
[2024-10-16] MEDS: THERAGRAN 1 TABLET PO (08:30)
[2024-10-16] MEDS: XANAX 1 MG PO (08:30)
[2024-10-16] MEDS: PROTONIX IV 40 MG IV (08:30)
[2024-10-16] MEDS: MYLICON 80 MG PO (08:30)
[2024-10-16 08:39] LABS: Blood Urea Nitrogen 4 mg/dl (7-17); Carbon Dioxide 27 mmol/L (22-30); Chloride 107 mmol/L (98-107); Estimated Creatinine Clearance 84 ml/min; Glucose 89 mg/dl (70-99); Potassium 3.9 mmol/L (3.5-5.1); Sodium 139 mmol/L (135-145); eGFR > 60.00
[2024-10-16 08:40] VITALS: BP 108/66
--- NOTE | 2024-10-16 10:23 | W.PN.HOSP.TC ---
Today's Communication/Plan
-
dc to home
Assessment / Plan
Assessment / Plan
Patient with history of cholecystitis status post cholecystectomy, ectopic status post surgery, status post umbilical hernia repair who presents to the emergency department with acute episode of right upper quadrant discomfort/pain
associated with bilious emesis. She had leukocytosis. No urinary symptoms. Labs are otherwise unremarkable with negative LFTs and lipase. CT scan is unremarkable with unchanged biliary ductal size of 8 mm, no evidence of acute pancreatitis
appendicitis or obstruction. There is fluid distention of the small and large bowel which may be consistent with an ileus. Possibly briefly she had a gallstone ileus or at this time enteritis without apparent diarrhea. Course complicated by
episode of convulsions in the setting of seeking additional pain medications. This lasted about 5 to 10 seconds. She had an headache episode yesterday but has not had a headache since.
PLAN:
Nausea,vomiting , diarrhea likely 2/2 infectious gastroenteritis (positive for Norovirus) Vomiting has resolved, diarrhea has eased, still feels bloated
Abdomen pain likely 2/2 above and hx of diverticulosis with decreased bowel motility related to diverticulosis
-Tolerating diet, needs to be on easy to digest
- will continue usual ppi daily
- antiemetics
- AXR - Nonobstructive bowel gas pattern. Mild colonic stool burden.
Convulsions - No prior h/o. lasted 5 seconds. No post-ictal depression. No tongue biting and no incontinence.
- monitor on telemetry
- CT head - Neg
- check lactic acid level
- no indication for additional as likelihood of pseudo seizure is much higher
Anxiety
- prn benzos for now.
DVT PPX - lovenox sq
Code statu full code
Pt would really like to go home, now that tolerating diet. Will dc. Not to go back to work until cleared by PCP
see dictated note
More than 30 minutes spent in discharge including
Final examination of the patient
Summarizing hospital stay
Instructions for continuing care to all relevant caregivers
Preparation of discharge records, prescriptions, and referral forms
Total time spent (in minutes): 45
Anticipated Discharge: Today
Subjective/Interval History
-
Date of Service: October 16, 2024
Still with a lot of gaseous distention in RUQ
Objective Data
-
Labs:
Laboratory Results
10/16/24
07:37
WBC 5.2
Hgb 11.3 L
Hct 34.7 L
Plt Count 199
Sodium 139
Potassium 3.9
Chloride 107
Carbon Dioxide 27
BUN 4 L
Creatinine 0.7
Glucose 89
Calcium 8.0 L
Vital Signs:
Vital Signs
Temp Pulse Resp BP Pulse Ox
97.6 F 80 16 101/61 99
10/16/24 03:55 10/16/24 03:55 10/16/24 03:55 10/16/24 03:55 10/16/24 03:55
I&O
10/15/24 10/16/24 10/17/24
06:59 06:59 06:59
Intake Total 480 / 480
Balance 480 / 480
Review of Systems
-
History Source: Patient and Coordinated Provider (nursing)
Constitutional: Denies Fever
EENT: Reports No Symptoms Reported
Respiratory: Reports No Symptoms
Cardiac: Reports No Symptoms
Abdomen/GI: Reports Abdominal Pain, Nausea (reduced, not resolved), Diarrhea (firmed up, but has not resolved) and Bloated; Denies Vomiting
Genitourinary: Reports No Symptoms
Neuro: Reports No Symptoms
Physical Exam
-
General: Well Developed, Well Nourished and No Apparent Distress
HEENT: Normocephalic, Atraumatic and Moist Mucous Membranes
Respiratory: Clear to Auscultation; Negative Wheezes, Rales or Rhonchi
Cardiac: Regular Rhythm and S1/S2
GI: Soft, Normal Bowel Sounds, Tender (most pronounced in area of hepatic flexure) and Distended
Musculoskeletal: No Clubbing, No Cyanosis and No Edema
Skin: Warm and Dry
Neuro: Awake, Alert and Oriented
--- NOTE | 2024-10-16 10:43 | W.DS.TRANS ---
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
-
Discharge Instructions:
Discharge Diagnosis/Procedures Norovirus
Diet Low Residue
Additional Diets easy to digest
Activity As tolerated
Driving Restrictions Not until seen by your Dr
Bathing Restrictions None
Blood Work CBC, BMP in 1 week
Instructions:
Stand-Alone Forms:
Changes to Home Medications: Yes
Discharge Medications:
DC Medications w/original date entered in [facility]
alprazolam 1 mg tablet 1 mg PO DAILY@0800,1400 Mental Health/Anxiety 10/13/24
alprazolam 1 mg tablet 2 mg PO HS Mental Health/Anxiety 10/13/24
hydroxyzine HCl 25 mg tablet 25 mg PO HS Mental Health/Anxiety 10/13/24
multivitamin 1 tab PO DAILY Supplement 10/13/24
pantoprazole 20 mg tablet,delayed release (Protonix) 20 mg PO DAILY Gastrointestinal Issue 10/13/24
acetaminophen 500 mg tablet (Tylenol Extra Strength) 1,000 mg PO Q6HPRN PRN headaches 10/14/24
ondansetron 4 mg disintegrating tablet 4 mg PO Q8H PRN nausea 4 days #8 tabs 10/16/24
simethicone 80 mg chewable tablet 80 mg PO PCHS #0 tabs 10/16/24
Home Medication Changes
Zofran ordered if needed
Simethicone should be started to help with gas bloating
Pending Results: No
[2024-10-16] MEDS: NSS IV (11:16)
--- NOTE | 2024-10-16 11:43 | CM ---
Reviewed the chart notes. Patient is discharged to home with no needs identified. Norovirus +. Patient resides alone in a three story home. The patient has no DME/VN/SNF in past. Home with no needs. CM continues to be available to
patient/family and is monitoring medical plan for needs at discharge.
Plan: Discharge to home today with no needs identified at this time.
[2024-10-16 11:57] VITALS: BP 111/73
== END 2024-10-16 14:09 | disposition home or self-care (01) | DRG 392 ==
LOC: 2 NORTH 09:18
PROVIDERS: Emergency Medicine; Hospitalist; ADMITTING PHYSICIAN Internal Medicine; ATTENDING PHYSICIAN Internal Medicine; CONSULT PHYSICIAN Internal Medicine Gastroenterology; EMERGENCY PHYSICIAN Emergency Medicine; FAMILY PHYSICIAN Family Medicine
DX: A08.11 Acute gastroenteropathy due to Norwalk agent (principal); E03.9 Hypothyroidism, unspecified; F41.9 Anxiety disorder, unspecified; D64.9 Anemia, unspecified; R56.9 Unspecified convulsions; K57.30 Diverticulosis of large intestine without perforation or abscess without bleeding; R79.82 Elevated C-reactive protein (CRP); K44.9 Diaphragmatic hernia without obstruction or gangrene; K21.9 Gastro-esophageal reflux disease without esophagitis; Z60.2 Problems related to living alone; Z88.2 Allergy status to sulfonamides; Z88.6 Allergy status to analgesic agent; Z88.5 Allergy status to narcotic agent; Z86.19 Personal history of other infectious and parasitic diseases; Z90.49 Acquired absence of other specified parts of digestive tract
CPT/HCPCS: 70450; 74022; 74177; 80048; 80053; 80306; 80307; 83605; 83690; 84703; 85025; 85027; 87045; 87046; 87324; 87427; 87449; 87798; 89055; 96361; 96374; 96375; 96376; 99285; Q9967

== ENCOUNTER → 2024-10-23 13:20 | Outpatient (REF) | payer OTHER, SELFPAY | LOC: HWRAD 13:20 | PROVIDERS: ATTENDING PHYSICIAN Obstetrics & Gynecology Gynecology; FAMILY PHYSICIAN Family Medicine | DX: R10.2 Pelvic and perineal pain (principal) | CPT/HCPCS: 76830; 76856 ==

== ENCOUNTER 2025-01-27 12:33 | Emergency (ER) | payer OTHER, SELFPAY ==
[2025-01-27] VITALS (10 sets, daily range): BP systolic 114–137; BP diastolic 72–93; BMI 25.4
[2025-01-27 13:06] LABS: COVID-19 Antigen Negative (Negative)
[2025-01-27 13:20] LABS: Blood Urea Nitrogen 13 mg/dl (7-17); Calcium 9.2 mg/dl (8.4-10.2); Carbon Dioxide 20 mmol/L (22-30); Chloride 109 mmol/L (98-107); Estimated Creatinine Clearance 84 ml/min; Glucose 118 mg/dl (70-99); Lipase 123 U/L (23-300); Sodium 139 mmol/L (135-145); eGFR > 60.00
--- NOTE | 2025-01-27 13:24 | ED.GENMED ---
History of Present Illness
General
Chief Complaint: Fainting/Passed Out
Source: patient
Time Seen by Provider: 01/27/25 13:15
Nursing documentation reviewed up to this point in time: agreed with
History of Present Illness
History of Present Illness:
Patient presents to ED secondary to syncopal episode this morning at home. Patient states that upon waking up this morning, she has had greater than 20 episodes of vomiting along with nonbloody diarrhea. Patient in fact was walking to restroom,
when she felt lightheaded and passed out. Denies any injuries from the fall. Patient woke up on her own. Patient called 911, as she felt too weak to stand up, along with continual dizziness, nausea, and headache. Patient reports eating at a
restaurant last night, consisting of fish. Denies recent change in medications. Denies previous history of similar symptoms. Denies recent travel or surgery. Denies chest pain. Denies preceding chest palpitations, chest pain, prior to passing
out.
Past History
Past History
ED Past Medical History: Other (gallstones)
ED Past Surgical History: Cholecystectomy, , Gynecological (Uterine ablation/reversal of tubal ligation) and Other (Abdominoplasty)
Social History
Tobacco: Non-smoker
Personal:
Living: with family
Employment: Not employed
Family History
Family History: Other (Noncontributory)
Review of Systems
Review of Systems
Allergies reviewed?: Yes
All Other Systems: ROS reviewed and negative except as documented in HPI and ROS
Constitutional: Reports no symptoms; Denies fever
Respiratory: Reports no symptoms; Denies trouble breathing
Cardiac: Reports syncope; Denies chest pain, diaphoresis or palpitations
ABD/GI: Reports abdominal pain, nausea, vomiting and diarrhea
: Reports no symptoms
Musculoskeletal: Reports no symptoms
Skin: Reports no symptoms
Neurological: Reports dizzy and headache
Phy Exam
Physical Exam
Physical Exam:
Physical Exam
General: mild distress, not acutely ill. afebrile. tachycardic
Head: nc/at. eomi
Neck: supple. no meningeal signs.
Heart: tachycardic, no murmur.
Lungs: no acute respiratory distress. clear bilaterally
Abdomen: normal bowel sounds. not tender.
Neuro: alert and oriented x 3. no focal neurological deficits
Skin: no rash
Psychiatric: well kept. interactive and cooperative
Extremities: no edema. no calf tenderness.
Course
Orders/Labs/Results
Orders:
Orders
01/27/25 12:41
Electrocardiogram (*1) Urgent
Reason for Study: Vertigo / Dizzy
01/27/25 12:42
EKG- Treatment ONCE
01/27/25 12:43
Basic Metabolic Panel Urgent
COVID-19 Antigen Urgent
Source: Nasal Swab
Lipase Urgent
Influenza A+B Rapid Molecular Urgent
ALAN Source: Nasal Swab
Specimen Description:
01/27/25 13:25
Ondansetron Injectable [Zofran] 4 mg IV NOW STA
01/27/25 13:26
Acetaminophen [Tylenol] 1,000 mg PO NOW STA
Pantoprazole [Protonix IV] 40 mg IV NOW STA
01/27/25 13:27
0.9% Sodium Chloride 1000 ml [Nss] 1,000 ml IV BOLUS
01/27/25 13:43
Complete Blood Count/With Diff Urgent
Magnesium Urgent
01/27/25 13:58
Stool Culture Urgent
ALAN Source: Feces/Stool
Specimen Description:
Date Specimen was Collected: 01/27/25
Time Specimen was Collected: 13:56
01/27/25 14:36
Morphine Sulfate 2 mg IV NOW STA
Prochlorperazine [Compazine] 10 mg IV NOW STA
01/27/25 14:37
0.9% Sodium Chloride 1000 ml [Nss] 1,000 ml IV BOLUS
Abnormal Lab Results
01/27/25 01/27/25
12:43 13:43
RBC 4.06 L 10^6/uL
(4.20-5.40)
MCH 31.3 H pg
(27.0-31.0)
Absolute Neuts (auto) 9.7 H 10^3/uL
(1.4-6.5)
Absolute Lymphs (auto) 0.5 L 10^3/uL
(1.2-3.4)
Neutrophils % 91.1 H %
(42.2-75.2)
Lymphocytes % 4.2 L %
(20.5-51.1)
Chloride 109 H mmol/L
(98-107)
Carbon Dioxide 20 L mmol/L
(22-30)
Glucose 118 H mg/dl
(70-99)
01/27/25 13:43
01/27/25 12:43
Vital Signs
Initial and Last Documented VS:
Initial Vital Signs
Pulse Resp BP Pulse Ox
113 18 137/93 99
01/27/25 12:35 01/27/25 12:35 01/27/25 12:35 01/27/25 12:35
Last Documented Vital Signs
Pulse Resp BP Pulse Ox
94 22 114/82 100
01/27/25 17:54 01/27/25 17:45 01/27/25 17:54 01/27/25 17:54
MDM/Problems Addressed
MDM/Problems Addressed:
Patient reports significant improvement in symptoms after treatment. Patient's presenting symptoms, i.e. syncope, likely vasovagal in nature, secondary to acute volume loss from multiple vomiting/diarrhea episodes in short period of time. Patient
otherwise does not have any risk factors for ACS nor PE.
Repeat orthostatic vital signs - no acute changes. Pt able to ambulate independently with steady gait, without any distress, at time of discharge.
Patient will be discharged home in stable condition, with recommendation to continue hydration at home, along with PCP follow-up as needed
Stool culture pending.
*Critical Care Note
Total Time (30-74mins, 75-104mins- exclusive of procedures): Not Applicable
ED Attending Note
-
Portions of this chart may have been created with voice recognition software.� Occasional wrong word or��sound alike� substitutions may have occurred due to the inherent limitations of voice recognition software.
Discharge Plan
Departure
Patient Disposition: Home (Routine Discharge)
Date of Disposition: 01/27/25
Time of Disposition: 17:11
Patient with high blood pressure during this ER visit?: Yes
Discharge Problem:
Syncope, Gastroenteritis
Instructions: Viral gastroenteritis in adults, Syncope (Fainting) (DC)
Prescriptions:
No Action
alprazolam 1 mg Tablet
1 mg PO DAILY@0800,1400
alprazolam 1 mg Tablet
2 mg PO HS
pantoprazole [Protonix] 20 mg Tablet,Delayed Release (Dr/Ec)
20 mg PO DAILY
hydroxyzine HCl 25 mg Tablet
25 mg PO HS
multivitamin Tablet
1 tab PO DAILY
acetaminophen [Tylenol Extra Strength] 500 mg Tablet
1,000 mg PO Q6HPRN PRN (Reason: headaches)
simethicone 80 mg Tablet,Chewable
80 mg PO PCHS Qty: 0 0RF
ondansetron 4 mg tablet,disintegrating
4 mg PO Q8H PRN (Reason: nausea) 4 Days Qty: 8 0RF
Referrals:
Omaira Greenwood MD [Family Provider] -
Stand Alone Forms: Return to Work
Activity Restrictions/Additional Instructions:
As discussed, please continue hydration at home, along with primary care physician follow-up as an outpatient. Please consider return to ED with worsening symptoms.
Interventions
Interventions:
*Risk Screen - Suicide Last Done: 01/27/25 12:38
*General Assessment Last Done: 01/27/25 12:38
*Neglect/Abuse Screening Last Done: 01/27/25 12:38
*ED COVID-19 Vaccine History Last Done: 01/27/25 12:38
*Nursing Disposition Last Done: 01/27/25 18:25
ED- Cardiac Assessment Last Done: 01/27/25 13:30
ED- Neurological Assessment Last Done: 01/27/25 13:30
Discharge Date and Time
Discharge Date/Time: 01/27/25 18:26
Print Language: KYRGYZ
[2025-01-27] MEDS: ZOFRAN 4 MG IV (13:39)
[2025-01-27] MEDS: PROTONIX IV 40 MG IV (13:40)
[2025-01-27] MEDS: NSS 1000 IV ×2 (13:40→14:43)
[2025-01-27 13:54] LABS: % Basophils 0.4 % (0-2); % Eosinophils 0.1 % (0-6); % Immature Granulocytes 0.4 % (0-0.5); % Lymphocytes 4.2 % (20.5-51.1); % Monocytes 3.8 % (1.7-9.3); % Neutrophils 91.1 % (42.2-75.2); Absolute Lymphocytes 0.5 10^3/uL (1.2-3.4); Absolute Monocytes 0.4 10^3/uL (0.1-0.6); Absolute Neutrophils 9.7 10^3/uL (1.4-6.5); Hematocrit 37.1 % (37.0-47.0); Hemoglobin 12.7 g/dL (12.0-16.0); Mean Corp Hgb Conc. 34.2 g/dL (33.0-37.0); Mean Corpuscular Hgb 31.3 pg (27.0-31.0); Mean Corpuscular Volume 91.4 fL (81.0-99.0); Mean Platelet Volume 9.8 fL (7.4-10.4); Nucleated Red Blood Cells % 0 %; Platelet Count 247 10^3/uL (130-400); Red Blood Cell Count 4.06 10^6/uL (4.20-5.40); Red Cell Dist. Width 12.1 % (11.5-14.5); White Blood Cell Count 10.7 10^3/uL (4.8-10.8)
[2025-01-27 14:12] LABS: Magnesium 1.6 mg/dl (1.6-2.3)
[2025-01-27] MEDS: TYLENOL PO (14:37)
[2025-01-27] MEDS: COMPAZINE 10 MG IV (14:39)
[2025-01-27] MEDS: MORPHINE SULFATE 2 MG IV (14:39)
[2025-01-27] MEDS: TYLENOL 1000 MG PO (15:50)
== END 2025-01-27 18:26 | disposition home or self-care (01) ==
LOC: EMR 12:33
PROVIDERS: EMERGENCY PHYSICIAN Emergency Medicine; FAMILY PHYSICIAN Family Medicine
DX: R55 Syncope and collapse (principal); R11.2 Nausea with vomiting, unspecified; R51.9 Headache, unspecified; R19.7 Diarrhea, unspecified; Z11.52 Encounter for screening for COVID-19; K52.9 Noninfective gastroenteritis and colitis, unspecified; R03.0 Elevated blood-pressure reading, without diagnosis of hypertension; E03.9 Hypothyroidism, unspecified; F41.9 Anxiety disorder, unspecified; F41.0 Panic disorder [episodic paroxysmal anxiety]; Z90.49 Acquired absence of other specified parts of digestive tract; Z88.6 Allergy status to analgesic agent; Z88.5 Allergy status to narcotic agent; Z88.2 Allergy status to sulfonamides
CPT/HCPCS: 99284; 96374; 96375 ×3; 96361 ×2; 80048; 83690; 83735; 85025; 87045; 87046; 87427; 87502; 87811; 93005

== ENCOUNTER → 2025-04-24 16:03 | Outpatient (REF) | payer OTHER, SELFPAY | LOC: WDC 16:03 | PROVIDERS: ATTENDING PHYSICIAN Obstetrics & Gynecology Gynecology; FAMILY PHYSICIAN Family Medicine | DX: Z12.31 Encounter for screening mammogram for malignant neoplasm of breast (principal) | CPT/HCPCS: 77063; 77067 ==

== ENCOUNTER → 2025-06-03 10:42 | Outpatient (REF) | payer OTHER, SELFPAY | LOC: MRI 3T 10:42 | PROVIDERS: ATTENDING PHYSICIAN Internal Medicine | DX: R19.5 Other fecal abnormalities (principal); K52.9 Noninfective gastroenteritis and colitis, unspecified | CPT/HCPCS: 72197; 74183; A9575 ==

== ENCOUNTER → 2025-08-01 12:39 | Outpatient (REF) | payer OTHER, SELFPAY | LOC: HWRAD 12:39 | PROVIDERS: ATTENDING PHYSICIAN Obstetrics & Gynecology Gynecology; FAMILY PHYSICIAN Family Medicine | DX: N85.9 Noninflammatory disorder of uterus, unspecified (principal); D21.9 Benign neoplasm of connective and other soft tissue, unspecified | CPT/HCPCS: 76830; 76856 ==

== ENCOUNTER 2025-08-13 00:15 | Emergency (ER) | payer OTHER, SELFPAY ==
[2025-08-13 00:27] LABS: Glucose - Point of Care 103 mg/dl (70-99)
[2025-08-13 00:32] VITALS: BP 113/89
--- NOTE | 2025-08-13 00:37 | ED.GENMED ---
History of Present Illness
General
Chief Complaint: Change Level of Consciousness
Source: ambulance crew
Time Seen by Provider: 08/13/25 00:20
History of Present Illness
History of Present Illness:
40-year-old female presents to the emergency room via ambulance after her significant other observed her to become unresponsive. Evidently he was unsure if she was breathing or had a pulse and started CPR. Medics arrived and found the patient with
a pulse and spontaneous respiration but not really responding to them. Upon arrival here to the emergency room the patient is sleeping but has adequate respiratory effort. She is mildly tachycardic. Accu-Chek is normal. During our evaluation the
patient did start to rales and become responsive. She admits to being [place] [facility] [place]. She denies any recreational drug use. She questions whether someone slipped something in her drink.
Past History
Past History
ED Past Medical History: Other (gallstones)
ED Past Surgical History: Cholecystectomy, , Gynecological (Uterine ablation/reversal of tubal ligation) and Other (Abdominoplasty)
Social History
Tobacco: Non-smoker
Personal:
Living: with family
Employment: Not employed
Family History
Family History: Other (Noncontributory)
Phy Exam
Physical Exam
Physical Exam:
General: Sleeping but arousable. Mildly confused
Vitals: unremarkable
Head: Atraumatic
Eyes: Pupils equal, EOMI
Throat: Airway intact, no exudates
Neck: Trachea midline
Lungs: Clear and equal b/l
Heart: Regular rate, no murmurs
Abd: Soft, Nontender, No pulsatile mass
Neuro: Nonfocal
Skin: Warm, dry, no rash
Extremities: pulses equal b/l, no edema
Course
Orders/Labs/Results
Orders:
Orders
08/13/25 00:29
Test Result ONCE
08/13/25 00:30
Alcohol Urgent
Complete Blood Count/With Diff Urgent
Comprehensive Metabolic Panel Urgent
HCG, Serum Qualitative Screen Urgent
08/13/25 00:33
0.9% Sodium Chloride 1000 ml [Nss] 1,000 ml IV BOLUS
08/13/25 01:33
Ondansetron Injectable [Zofran] 4 mg IV NOW STA
08/13/25 01:34
Ondansetron Injectable [Zofran] 4 mg .ROUTE .STK-MED ONE
08/13/25 01:48
Fentanyl, Urine Urgent
Urine Drug Abuse Screen Urgent
Date Specimen was Collected: 08/13/25
Time Specimen was Collected: 01:38
Abnormal Lab Results
08/13/25 08/13/25 08/13/25
00:24 00:30 01:48
WBC 15.9 H 10^3/uL
(4.8-10.8)
MCHC 32.6 L g/dL
(33.0-37.0)
Abs Immat Gran (auto) 0.1 H 10^3/uL
(0-0.05)
Absolute Neuts (auto) 12.6 H 10^3/uL
(1.4-6.5)
Absolute Monos (auto) 0.9 H 10^3/uL
(0.1-0.6)
Neutrophils % 79.0 H %
(42.2-75.2)
Lymphocytes % 13.2 L %
(20.5-51.1)
Glucose 113 H mg/dl
(70-99)
U Benzodiazepines Scrn Positive H
(Negative)
Urine Cocaine Screen Positive H
(Negative)
POC Glucose 103 H mg/dl
(70-99)
08/13/25 00:30
08/13/25 00:30
Vital Signs
Initial and Last Documented VS:
Initial Vital Signs
Pulse Resp
124 19
08/13/25 00:20 08/13/25 00:20
Last Documented Vital Signs
Temp Pulse Resp BP Pulse Ox
96.8 F L 107 15 100/85 99
08/13/25 00:28 08/13/25 03:15 08/13/25 03:15 08/13/25 03:00 08/13/25 03:15
MDM/Problems Addressed
Differential Diagnosis Includes:
Alcohol intoxication, drug intoxication, electrolyte abnormality
MDM/Problems Addressed:
Patient presents after having an episode of unresponsiveness at home. Clinically she appears intoxicated. Labs show that her alcohol level is moderately elevated at 223. UDS was positive for benzos and cocaine. Patient is prescribed benzos. She
is surprised to see cocaine in her UDS. Denies cocaine use. Patient's presentation can be explained by her alcohol level. She improved here with supportive care. Ultimately discharged to the care of her boyfriend.
*Pulse Oximetry
SaO2: 99
Oxygen Mode of Delivery: Room air
Patient hypoxic: no
*Critical Care Note
Total Time (30-74mins, 75-104mins- exclusive of procedures): Not Applicable
ED Attending Note
-
Portions of this chart may have been created with voice recognition software.� Occasional wrong word or��sound alike� substitutions may have occurred due to the inherent limitations of voice recognition software.
Discharge Plan
Departure
Patient Disposition: Home (Routine Discharge)
Date of Disposition: 08/13/25
Time of Disposition: 02:44
Patient with high blood pressure during this ER visit?: No
Condition: Good
Discharge Problem:
Alcohol intoxication
Instructions: Alcohol intoxication - ED (DC)
Prescriptions:
No Action
alprazolam 1 mg Tablet
1 mg PO DAILY@0800,1400
alprazolam 1 mg Tablet
2 mg PO HS
pantoprazole [Protonix] 20 mg Tablet,Delayed Release (Dr/Ec)
20 mg PO DAILY
hydroxyzine HCl 25 mg Tablet
25 mg PO HS
multivitamin Tablet
1 tab PO DAILY
acetaminophen [Tylenol Extra Strength] 500 mg Tablet
1,000 mg PO Q6HPRN PRN (Reason: headaches)
simethicone 80 mg Tablet,Chewable
80 mg PO PCHS Qty: 0 0RF
ondansetron 4 mg tablet,disintegrating
4 mg PO Q8H PRN (Reason: nausea) 4 Days Qty: 8 0RF
Interventions
Interventions:
*Risk Screen - Suicide Last Done: 08/13/25 00:19
*General Assessment Last Done: 08/13/25 00:19
*Neglect/Abuse Screening Last Done: 08/13/25 00:19
*ED- Fall Risk Assessment Last Done: 08/13/25 00:19
*ED COVID-19 Vaccine History Last Done: 08/13/25 00:19
*ED Influenza Vaccine History Last Done: 08/13/25 00:19
*Nursing Disposition Last Done: 08/13/25 03:36
ED- Cardiac Assessment Last Done: 08/13/25 00:19
ED- Neurological Assessment Last Done: 08/13/25 00:19
ED-Psychological Assessment Last Done: 08/13/25 00:28
ED- Pulmonary Assessment Last Done: 08/13/25 00:19
Discharge Date and Time
Print Language: POLISH
[2025-08-13] MEDS: NSS 1000 IV (00:45)
[2025-08-13 01:00] VITALS: BP 107/89
[2025-08-13 01:05] LABS: Hematocrit 40.8 % (37.0-47.0); Hemoglobin 13.3 g/dL (12.0-16.0); Mean Corp Hgb Conc. 32.6 g/dL (33.0-37.0); Mean Corpuscular Volume 94.4 fL (81.0-99.0); Nucleated Red Blood Cells % 0 %; Platelet Count 222 10^3/uL (130-400); Red Cell Dist. Width 11.9 % (11.5-14.5)
[2025-08-13 01:14] LABS: HCG, Serum Qualitative Screen Negative
[2025-08-13 01:21] LABS: ALT (SGPT) 22 U/L (0-35); AST (SGOT) 28 U/L (14-36); Albumin 4.9 g/dl (3.5-5.0); Alkaline Phosphatase 64 U/L (38-126); Blood Urea Nitrogen 9 mg/dl (7-17); Calcium 9.0 mg/dl (8.4-10.2); Carbon Dioxide 24 mmol/L (22-30); Chloride 105 mmol/L (98-107); Glucose 113 mg/dl (70-99); Potassium 4.5 mmol/L (3.5-5.1); Sodium 138 mmol/L (135-145); Total Protein 8.1 g/dl (6.3-8.2); eGFR > 60.00
[2025-08-13] MEDS: ZOFRAN 4 MG IV (01:34)
[2025-08-13 02:00] VITALS: BP 103/68
[2025-08-13 03:00] VITALS: BP 100/85
== END 2025-08-13 03:36 | disposition home or self-care (01) ==
LOC: EMR 00:15
PROVIDERS: EMERGENCY PHYSICIAN Emergency Medicine; FAMILY PHYSICIAN Family Medicine
DX: F10.129 Alcohol abuse with intoxication, unspecified (principal); Y90.9 Presence of alcohol in blood, level not specified; Z90.49 Acquired absence of other specified parts of digestive tract
CPT/HCPCS: 96374; 96361; 99284; 80053; 80306; 80307; 82077; 82962; 84703; 85025